=== PATIENT | male | born 1945 | race Hispanic/Latino ===

== ENCOUNTER → 2020-01-06 | Outpatient (CLI) | payer MEDICARE, BC ==
[~2020-01-06] MED LIST: LISINOPRIL-HCT1 EAC1 PO
== END ==
LOC: DX 07:59
PROVIDERS: ATTEND Internal Medicine
DX: M81.8 Other osteoporosis without current pathological fracture (principal)
CPT/HCPCS: 77080

== ENCOUNTER 2024-05-22 08:36 | Emergency (ER) | payer MEDICARE, BC ==
[~2024-05-22] VITALS: Ht 172.7 cm; Wt 100.4 kg
[2024-05-22] MEDS ORDERED: KETOROLAC TROMETHAMINE 30 MG/ML VIAL IV STA (09:12)
[2024-05-22] MEDS ORDERED: LISINOPRIL10 MG PO (09:13)
[2024-05-22] MEDS ORDERED: ATORVASTATIN CA20 MG PO (09:13)
[2024-05-22] MEDS ORDERED: PIOGLITAZONE HC45 MG PO (09:13)
[2024-05-22] MEDS ORDERED: CETIRIZINE HCL10 MG PO (09:44)
[2024-05-22] MEDS ORDERED: MUCINEX DM ER1 EACH PO (09:45)
[2024-05-22 09:59] VITALS: PULSE 71; RESP 16; TEMP 98.2; O2SAT 97
== END 2024-05-22 09:59 | disposition home or self-care (01) ==
LOC: FSED 08:40
DX: R05.9 Cough, unspecified (principal); J06.9 Acute upper respiratory infection, unspecified; I10 Essential (primary) hypertension; E11.9 Type 2 diabetes mellitus without complications; E78.5 Hyperlipidemia, unspecified; M81.0 Age-related osteoporosis without current pathological fracture; Z11.52 Encounter for screening for COVID-19
CPT/HCPCS: 0223U; 83518; 87400; 99283

== ENCOUNTER 2024-09-02 10:30 | Emergency (ER) | payer MEDICARE, BC ==
[~2024-09-02] VITALS: Ht 172.7 cm; Wt 99.8 kg
[~2024-09-02 10:30] MED LIST changes: +ATORVASTATIN CA20 MG PO; +CETIRIZINE HCL10 MG PO; +LISINOPRIL10 MG PO; +MUCINEX DM ER1 EACH PO; +PIOGLITAZONE HC45 MG PO
[2024-09-02 11:24] VITALS: PULSE 70; RESP 18; TEMP 97.7
[2024-09-02] MEDS: ACETAMINOPHEN 325 MG TAB PO ONE (12:56)
[2024-09-02] MEDS ORDERED: ACETAMINOPHEN-1 EAC4 PO (14:11)
[2024-09-02 14:27] VITALS: BP 139/78; PULSE 69; RESP 20; TEMP 97.6; O2SAT 96
== END 2024-09-02 14:26 | disposition home or self-care (01) ==
LOC: FSED 11:01
DX: M79.641 Pain in right hand (principal); S62.396A Other fracture of fifth metacarpal bone, right hand, initial encounter for closed fracture; W10.8XXA Fall (on) (from) other stairs and steps, initial encounter; Y93.01 Activity, walking, marching and hiking; Y92.89 Other specified places as the place of occurrence of the external cause; I10 Essential (primary) hypertension; E11.9 Type 2 diabetes mellitus without complications; E78.5 Hyperlipidemia, unspecified; M81.0 Age-related osteoporosis without current pathological fracture
CPT/HCPCS: 99284

== ENCOUNTER 2024-11-02 08:36 | Emergency (ER) | payer BC, MEDICARE ==
[~2024-11-02] VITALS: Ht 172.7 cm; Wt 99.1 kg
[~2024-11-02 08:36] MED LIST changes: +ACETAMINOPHEN-1 EAC4 PO
[2024-11-02 08:50] VITALS: PULSE 62; RESP 18; TEMP 97.8; O2SAT 94
[2024-11-02] MEDS ORDERED: ALLEGRA ALLERGY60 MG PO (09:10)
[2024-11-02] MEDS ORDERED: MUCINEX DM ER1 EACH PO (09:10)
[2024-11-02] MEDS ORDERED: AZITHROMYCIN250 MG PO (09:10)
== END 2024-11-02 09:43 | disposition home or self-care (01) ==
LOC: FSED 08:45
DX: R05.9 Cough, unspecified (principal); J06.9 Acute upper respiratory infection, unspecified; J40 Bronchitis, not specified as acute or chronic; R09.89 Other specified symptoms and signs involving the circulatory and respiratory systems; I10 Essential (primary) hypertension; E11.65 Type 2 diabetes mellitus with hyperglycemia; E78.5 Hyperlipidemia, unspecified; M81.0 Age-related osteoporosis without current pathological fracture
CPT/HCPCS: 36415; 71046; 82948; 99284

== ENCOUNTER 2025-01-26 12:01 | Emergency (ER) | payer MEDICARE, BC ==
[~2025-01-26] VITALS: Ht 172.7 cm; Wt 107.5 kg
[~2025-01-26 12:01] MED LIST changes: +ALLEGRA ALLERGY60 MG PO; +AZITHROMYCIN250 MG PO
[2025-01-26 12:04] VITALS: TEMP 98.5
[2025-01-26] MEDS ORDERED: TRAMADOL HCL 50 MG TAB PO ONE (12:30)
[2025-01-26] MEDS: KETOROLAC TROMETHAMINE 30 MG/ML VIAL IM STA (12:43)
[2025-01-26 13:41] VITALS: PULSE 60; RESP 20; O2SAT 96
== END 2025-01-26 13:48 | disposition home or self-care (01) ==
LOC: FSED 12:04
DX: M25.551 Pain in right hip (principal); I10 Essential (primary) hypertension; E11.9 Type 2 diabetes mellitus without complications; E78.5 Hyperlipidemia, unspecified; M81.0 Age-related osteoporosis without current pathological fracture
CPT/HCPCS: 73502; 99283; J1885